=== PATIENT | male | born 1940 | race African-American/Black ===

== ENCOUNTER 2018-01-10 21:53 | Emergency (ER) | payer MEDICARE, MEDICAID ==
[~2018-01-10] VITALS: Ht 175.3 cm; Wt 104.5 kg
[~2018-01-10 21:53] MED LIST: AMLO1TAB39 PO; ATEN-42 PO; CLON1PAT11 TD; DOCU-150 PO; DORZ10DR8 EACHEYE; HYDR12.529 PO; LEVO25TA7 PO; LOSA25TA12 PO; NEOAPJ IM; TIMO10DR30 EACHEYE
[2018-01-10 23:44] LABS: HEMATOCRIT 37.8 % (42.0-52.0); HEMOGLOBIN 11.7 g/dL (14.0-18.0); MEAN CORPUSCULAR HEMOGLOBIN 29.3 pg (28.0-32.0); MEAN CORPUSCULAR VOLUME 94.5 fL (80.0-94.0); PLATELET 195 x1000/uL (130-400); RED CELL DISTRIBUTION WIDTH 14.4 % (11.6-14.6)
[2018-01-10 23:51] LABS: CHLORIDE 103 mEq/L (98-107)
[2018-01-11 02:45] VITALS: BP 153/87
[2018-01-15] MEDS ORDERED: DORZ10DR9 EACHEYE (14:48)
[2018-01-15] MEDS ORDERED: BRIM5DRO6 EACHEYE (14:48)
[2018-01-15] MEDS ORDERED: LATA2.5D2 EACHEYE (14:48)
== END 2018-01-11 03:18 | disposition home or self-care (01) ==
LOC: ER 22:05
DX: M79.89 Other specified soft tissue disorders (principal); I12.9 Hypertensive chronic kidney disease with stage 1 through stage 4 chronic kidney disease, or unspecified chronic kidney disease; N18.9 Chronic kidney disease, unspecified; J45.909 Unspecified asthma, uncomplicated; E03.9 Hypothyroidism, unspecified; H40.9 Unspecified glaucoma; H54.40 Blindness, one eye, unspecified eye
CPT/HCPCS: 36415; 80053; 85027; 87040; 93970; 99285

== ENCOUNTER 2019-10-25 09:56 | Inpatient (IN) | payer MEDICAID, MEDICARE, OTHER ==
[~2019-10-25] VITALS: Ht 182.9 cm; Wt 101.2 kg
[~2019-10-25 09:56] MED LIST changes: +BRIM5DRO6 EACHEYE; +DORZ10DR9 EACHEYE; +LATA2.5D2 EACHEYE; -LOSA25TA12 PO; +LOSA25TA26 PO
[2019-10-25 11:03] LABS: HEMATOCRIT. 39.6 % (42.0-52.0); HEMOGLOBIN. 11.9 g/dL (14.0-18.0); MEAN PLATELET VOLUME 6.8 fl (7.4-10.4); PLATELET 198 x1000/uL (130-400); RED BLOOD CELL COUNT 3.96 mill/uL (4.7-6.1); RED CELL DISTRIBUTION WIDTH 14.7 % (11.6-14.6)
[2019-10-25 11:12] LABS: CHLORIDE 104 mEq/L (98-107)
[2019-10-25 11:15] LABS: D-DIMER 2.23 mg/L FEU (<0.50); PROTHROMBIN TIME 11.2 sec (9.6-11.0)
[2019-10-25 11:18] LABS: BG CARBOXYHEMOGLOBIN 0.4 % (0.5-1.5); BG DEOXYHEMOGLOBIN 0.7 % (0.0-5.0); BG FRACTION INSPIRED OXYGEN 100; BG METHEMOGLOBIN 0.5 % (0.0-1.5); BG OXYGEN SATURATION 99.3 % (92.0-98.5); BG OXYHEMOGLOBIN 98.4 % (94.0-97.0); BG PCO2 > 183.4 mmHg (35.0-45.0); BG PH 6.993 (7.350-7.450); BG PO2 291.4 mmHg (75.0-100.0); BG SAMPLE SITE RIGHT RADIAL; BG TOTAL HEMOGLOBIN 12.8 g/dL (12.0-18.0); BG VENT MODE MASK - NRB
[2019-10-25 11:22] LABS: CREATINE KINASE 32 IU/L (39-308)
[2019-10-25] MEDS ORDERED: AZITHROMYCIN 500 MG in DEXT 5% WATER 250 ML IV SCH (11:30)
[2019-10-25] MEDS ORDERED: CEFTRIAXONE 1 G PREMIX 50 ML IV SCH (11:30)
[2019-10-25] MEDS ORDERED: ETOMIDATE 2MG/ML 10ML VIAL IV ONE ×2 (11:30)
[2019-10-25] MEDS ORDERED: PROPOFOL 10MG/ML 100ML 100 ML IV ONE ×2 (11:30→14:44)
[2019-10-25] MEDS ORDERED: ACETAMINOPHEN 325MG TABLET PO PRN (11:30)
[2019-10-25] MEDS ORDERED: SUCCINYLCHOLINE CHLORIDE 200MG/10ML IV ONE ×2 (11:30)
[2019-10-25] MEDS ORDERED: CEFTRIAXONE 1 G PREMIX 50 ML IV ONE (12:00)
[2019-10-25] MEDS ORDERED: AZITHROMYCIN 500 MG in DEXT 5% WATER 250 ML IV ONE (12:00)
[2019-10-25] MEDS ORDERED: ENOXAPARIN 100MG/ML SYR SUBCUT ONE (12:00)
[2019-10-25 12:05] LABS: PLATELET ESTIMATE NORMAL
[2019-10-25] MEDS: HYDRALAZINE 20MG/ML VIAL IV PRN ×2 (12:10→17:59)
[2019-10-25 12:20] LABS: CLARITY URINE CLEAR (CLEAR); COLOR URINE YELLOW (YELLOW); KETONES URINE NEGATIVE (NEGATIVE); LEUKOCYTE ESTERASE URINE NEGATIVE (NEGATIVE); NITRITE URINE NEGATIVE (NEGATIVE); OCCULT BLOOD URINE NEGATIVE (NEGATIVE); PROTEIN URINE TRACE (NEGATIVE); SPECIFIC GRAVITY URINE 1.013 (1.005-1.030); UROBILINOGEN URINE 0.2 E.U./dL (0.2-1.0)
[2019-10-25] MEDS: DEXT 5%/0.45% NACL 1000ML 1,000 ML IV SCH (12:25)
[2019-10-25] MEDS: PANTOPRAZOLE SODIUM 40 MG/VIAL IV SCH (12:25)
[2019-10-25] MEDS ORDERED: VANCOMYCIN 1 G PREMIX 200 ML IV ONE (12:30)
[2019-10-25] MEDS ORDERED: PIPERACILLIN/TAZ 3.375G PREMIX 50 ML IV ONE (12:30)
[2019-10-25] MEDS: ENOXAPARIN 40MG/0.4ML SYR SUBCUT SCH (13:32)
[2019-10-25] MEDS: PROPOFOL 10MG/ML 100ML 100 ML IV PRN ×2 (15:00→18:15)
[2019-10-25 16:28] LABS: BG BASE EXCESS 16.3 mmol/L (-2.0-2.0); BG CARBOXYHEMOGLOBIN 0.2 % (0.5-1.5); BG DEOXYHEMOGLOBIN 0.7 % (0.0-5.0); BG FRACTION INSPIRED OXYGEN 70; BG HCO3 ACT 40.4 mmol/L (22.0-26.0); BG METHEMOGLOBIN 0.3 % (0.0-1.5); BG OXYGEN SATURATION 99.3 % (92.0-98.5); BG OXYHEMOGLOBIN 98.8 % (94.0-97.0); BG PCO2 46.3 mmHg (35.0-45.0); BG PH 7.559 (7.350-7.450); BG PO2 186.8 mmHg (75.0-100.0); BG SAMPLE SITE RIGHT RADIAL; BG TIDAL VOLUME(mL) 500 mL; BG TOTAL HEMOGLOBIN 12.4 g/dL (12.0-18.0); BG VENT MODE VENT - A/C; BG VENT RATE 20 set
[2019-10-25] MEDS ORDERED: METHYLPREDNISOLONE SOD SUCC 125 MG/2 ML VIAL IV SCH (22:00)
[2019-10-26] MEDS: DEXT 5%/0.45% NACL 1000ML 1,000 ML IV SCH ×2 (00:45→14:55)
[2019-10-26] MEDS: HYDRALAZINE 20MG/ML VIAL IV PRN ×3 (00:48→13:26)
[2019-10-26] MEDS: PROPOFOL 10MG/ML 100ML 100 ML IV PRN ×4 (07:50→18:12)
[2019-10-26 08:05] LABS: BG CARBOXYHEMOGLOBIN 0.9 % (0.5-1.5); BG DEOXYHEMOGLOBIN 4.5 % (0.0-5.0); BG FRACTION INSPIRED OXYGEN 30; BG HCO3 ACT 35.6 mmol/L (22.0-26.0); BG METHEMOGLOBIN 0.3 % (0.0-1.5); BG OXYGEN SATURATION 95.4 % (92.0-98.5); BG OXYHEMOGLOBIN 94.3 % (94.0-97.0); BG PCO2 41.3 mmHg (35.0-45.0); BG PH 7.553 (7.350-7.450); BG PO2 64.7 mmHg (75.0-100.0); BG SAMPLE SITE RIGHT RADIAL; BG TIDAL VOLUME(mL) 500 mL; BG TOTAL HEMOGLOBIN 14.9 g/dL (12.0-18.0); BG VENT MODE VENT - A/C; BG VENT RATE 14 set
[2019-10-26] MEDS: METHYLPREDNISOLONE SOD SUCC 125 MG/2 ML VIAL IV SCH ×2 (08:51→15:10)
[2019-10-26] MEDS: PANTOPRAZOLE SODIUM 40 MG/VIAL IV SCH (09:21)
[2019-10-26 10:37] LABS: BASOPHILS % 0.2 % (0.0-2.0); EOSINOPHILS % 0.1 % (0.0-5.0); HEMATOCRIT. 42.1 % (42.0-52.0); HEMOGLOBIN. 13.3 g/dL (14.0-18.0); LYMPHOCYTES % 8.6 % (20.0-50.0); MEAN CORPUSCULAR HEMOGLOBIN 30.1 pg (28.0-32.0); MEAN CORPUSCULAR VOLUME 95.4 fL (80.0-94.0); MONOCYTES % 2.9 % (2.0-8.0); NEUTROPHILS % 88.2 % (40.0-76.0); PLATELET 202 x1000/uL (130-400); RED BLOOD CELL COUNT 4.42 mill/uL (4.7-6.1); RED CELL DISTRIBUTION WIDTH 14.4 % (11.6-14.6)
[2019-10-26 10:42] LABS: CHLORIDE 103 mEq/L (98-107)
[2019-10-26] MEDS: AMLODIPINE 10MG TABLET NG SCH (10:46)
[2019-10-26] MEDS: ENOXAPARIN 40MG/0.4ML SYR SUBCUT SCH (11:19)
[2019-10-26] MEDS ORDERED: CEFTRIAXONE 1 G PREMIX 50 ML IV SCH (11:30)
[2019-10-26] MEDS ORDERED: AZITHROMYCIN 250 MG in DEXT 5% WATER 250 ML IV SCH (12:00)
[2019-10-26] MEDS: LOSARTAN POTASSIUM 50 MG TABLET PO SCH ×2 (13:25→18:35)
[2019-10-26 13:34] LABS: *AMPHETAMINES SCREEN URINE NEGATIVE (NEGATIVE); *COCAINE SCREEN URINE NEGATIVE (NEGATIVE); METHADONE URINE SCREEN NEGATIVE (NEGATIVE); OPIATES URINE SCREEN NEGATIVE (NEGATIVE)
[2019-10-26 13:35] LABS: *BENZODIAZEPINES SCREEN URINE NEGATIVE (NEGATIVE)
[2019-10-26 13:37] LABS: *BARBITURATES SCREEN URINE NEGATIVE (NEGATIVE)
[2019-10-26 13:41] LABS: PHENCYCLIDINE URINE SCREEN NEGATIVE (NEGATIVE)
[2019-10-26 13:42] LABS: CANNABINOID URINE SCREEN NEGATIVE (NEGATIVE)
[2019-10-26 17:04] LABS: COVID-19 PCR RNA NOT DETECTED
[2019-10-26 17:05] LABS: COVID-19 PCR RNA NOT DETECTED
[2019-10-26] MEDS ORDERED: PROPOFOL 10MG/ML 100ML 100 ML IV PRN (20:15)
[2019-10-27] VITALS (42 sets, daily range): BP systolic 95–172; BP diastolic 51–93
[2019-10-27] MEDS: PROPOFOL 10MG/ML 100ML 100 ML IV PRN ×8 (00:37→21:35)
[2019-10-27] MEDS ORDERED: AMLO10TA80 PO (03:49)
[2019-10-27] MEDS ORDERED: GABA-529 PO (03:49)
[2019-10-27] MEDS ORDERED: HYDR-4135 PO (03:49)
[2019-10-27] MEDS ORDERED: FURO-151 PO (03:49)
[2019-10-27] MEDS ORDERED: DOCU-150 PO (03:49)
[2019-10-27] MEDS ORDERED: VIT500LI PO (03:49)
[2019-10-27] MEDS ORDERED: FERR325T6 PO (03:49)
[2019-10-27] MEDS: DEXT 5%/0.45% NACL 1000ML 1,000 ML IV SCH ×2 (04:47→16:39)
[2019-10-27] MEDS: METHYLPREDNISOLONE SOD SUCC 40 MG/ML VIAL IV SCH ×3 (06:25→23:01)
[2019-10-27] MEDS ORDERED: IPRATROPIUM/ALBUTEROL 0.5-3(2.5)MG/3ML NEB HHN PRN (07:00)
[2019-10-27] MEDS: IPRATROPIUM/ALBUTEROL 0.5-3(2.5)MG/3ML NEB HHN SCH ×4 (08:31→20:49)
[2019-10-27 09:27] LABS: BG BASE EXCESS 7.6 mmol/L (-2.0-2.0); BG CARBOXYHEMOGLOBIN 0.3 % (0.5-1.5); BG DEOXYHEMOGLOBIN 3.9 % (0.0-5.0); BG FRACTION INSPIRED OXYGEN 40; BG HCO3 ACT 30.8 mmol/L (22.0-26.0); BG METHEMOGLOBIN 0.2 % (0.0-1.5); BG OXYGEN SATURATION 96.1 % (92.0-98.5); BG OXYHEMOGLOBIN 95.6 % (94.0-97.0); BG PCO2 38.2 mmHg (35.0-45.0); BG PH 7.524 (7.350-7.450); BG PO2 73.1 mmHg (75.0-100.0); BG SAMPLE SITE LEFT RADIAL; BG TIDAL VOLUME(mL) 500 mL; BG TOTAL HEMOGLOBIN 13.3 g/dL (12.0-18.0); BG VENT MODE VENT - A/C; BG VENT RATE 12 set
[2019-10-27 09:32] LABS: HEMATOCRIT 40.3 % (42.0-52.0); HEMOGLOBIN 12.9 g/dL (14.0-18.0); MEAN CORPUSCULAR HEMOGLOBIN 30.3 pg (28.0-32.0); MEAN CORPUSCULAR VOLUME 94.4 fL (80.0-94.0); PLATELET 206 x1000/uL (130-400); RED BLOOD CELL COUNT 4.26 mill/uL (4.7-6.1); RED CELL DISTRIBUTION WIDTH 14.9 % (11.6-14.6)
[2019-10-27] MEDS: LOSARTAN POTASSIUM 50 MG TABLET PO SCH (09:33)
[2019-10-27] MEDS: AMLODIPINE 10MG TABLET NG SCH (09:33)
[2019-10-27] MEDS: ENOXAPARIN 40MG/0.4ML SYR SUBCUT SCH (09:34)
[2019-10-27] MEDS: PANTOPRAZOLE SODIUM 40 MG/VIAL IV SCH (09:34)
[2019-10-27 09:38] LABS: CHLORIDE 104 mEq/L (98-107)
[2019-10-27] MEDS: CEFTRIAXONE 1 G PREMIX 50 ML IV SCH (11:16)
[2019-10-27] MEDS ORDERED: FENTANYL CITRATE/PF 1,000 MCG in SODIUM CHLORIDE 0.9% 80 ML IV PRN (12:30)
[2019-10-27] MEDS: AZITHROMYCIN 250 MG in DEXT 5% WATER 250 ML IV SCH (12:33)
[2019-10-27] MEDS ORDERED: FUROSEMIDE 40MG/4ML VIAL IVP SCH (13:00)
[2019-10-27] MEDS ORDERED: FUROSEMIDE 20MG/2ML VIAL IVP SCH (13:00)
[2019-10-28] VITALS (32 sets, daily range): BP systolic 95–156; BP diastolic 52–96
[2019-10-28] MEDS: PROPOFOL 10MG/ML 100ML 100 ML IV PRN (00:58)
[2019-10-28] MEDS: IPRATROPIUM/ALBUTEROL 0.5-3(2.5)MG/3ML NEB HHN SCH ×6 (01:06→20:35)
[2019-10-28 04:28] LABS: BG BASE EXCESS 3.1 mmol/L (-2.0-2.0); BG CARBOXYHEMOGLOBIN 0.3 % (0.5-1.5); BG DEOXYHEMOGLOBIN 0.4 % (0.0-5.0); BG FRACTION INSPIRED OXYGEN 100; BG HCO3 ACT 28.7 mmol/L (22.0-26.0); BG METHEMOGLOBIN 0.4 % (0.0-1.5); BG OXYGEN SATURATION 99.6 % (92.0-98.5); BG OXYHEMOGLOBIN 98.9 % (94.0-97.0); BG PCO2 48.2 mmHg (35.0-45.0); BG PH 7.393 (7.350-7.450); BG PO2 372.1 mmHg (75.0-100.0); BG SAMPLE SITE LEFT RADIAL; BG TOTAL HEMOGLOBIN 12.9 g/dL (12.0-18.0); BG VENT MODE MASK - NRB
[2019-10-28] MEDS: METHYLPREDNISOLONE SOD SUCC 40 MG/ML VIAL IV SCH ×2 (06:36→15:54)
[2019-10-28] MEDS: DEXT 5%/0.45% NACL 1000ML 1,000 ML IV SCH ×2 (06:36→19:25)
[2019-10-28 07:19] LABS: CHLORIDE 103 mEq/L (98-107)
[2019-10-28 07:33] LABS: HEMATOCRIT. 38.1 % (42.0-52.0); HEMOGLOBIN. 12.4 g/dL (14.0-18.0); MEAN CORPUSCULAR HEMOGLOBIN 30.4 pg (28.0-32.0); MEAN CORPUSCULAR VOLUME 93.8 fL (80.0-94.0); MEAN PLATELET VOLUME 7.5 fl (7.4-10.4); PLATELET 237 x1000/uL (130-400); RED BLOOD CELL COUNT 4.06 mill/uL (4.7-6.1)
[2019-10-28] MEDS: ENOXAPARIN 40MG/0.4ML SYR SUBCUT SCH (09:00)
[2019-10-28] MEDS: FAMOTIDINE 20MG/2ML VIAL IV SCH ×2 (09:00→21:25)
[2019-10-28 09:05] LABS: BG BASE EXCESS 3.9 mmol/L (-2.0-2.0); BG DEOXYHEMOGLOBIN 3.4 % (0.0-5.0); BG FRACTION INSPIRED OXYGEN 32; BG HCO3 ACT 30.9 mmol/L (22.0-26.0); BG METHEMOGLOBIN 0.4 % (0.0-1.5); BG OXYGEN SATURATION 96.6 % (92.0-98.5); BG OXYHEMOGLOBIN 96.2 % (94.0-97.0); BG PCO2 57.7 mmHg (35.0-45.0); BG PH 7.347 (7.350-7.450); BG PO2 93.3 mmHg (75.0-100.0); BG SAMPLE SITE RIGHT RADIAL; BG TOTAL HEMOGLOBIN 12.5 g/dL (12.0-18.0); BG VENT MODE NASAL CANNULA
[2019-10-28 09:19] LABS: PLATELET ESTIMATE NORMAL
[2019-10-28] MEDS: CEFTRIAXONE 1 G PREMIX 50 ML IV SCH (11:29)
[2019-10-28] MEDS: AMLODIPINE 10MG TABLET NG SCH (11:29)
[2019-10-28] MEDS: LOSARTAN POTASSIUM 50 MG TABLET PO SCH (11:29)
[2019-10-28] MEDS: AZITHROMYCIN 250 MG in DEXT 5% WATER 250 ML IV SCH (12:00)
[2019-10-28] MEDS: PREDNISONE 20MG TABLET PO SCH (17:00)
[2019-10-29] VITALS (12 sets, daily range): BP systolic 114–145; BP diastolic 58–82
[2019-10-29] MEDS: IPRATROPIUM/ALBUTEROL 0.5-3(2.5)MG/3ML NEB HHN SCH ×6 (00:15→21:10)
[2019-10-29 06:57] LABS: BASOPHILS % 0.2 % (0.0-2.0); HEMATOCRIT. 34.7 % (42.0-52.0); HEMOGLOBIN. 11.1 g/dL (14.0-18.0); LYMPHOCYTES % 9.3 % (20.0-50.0); MEAN CORPUSCULAR HEMOGLOBIN 30.1 pg (28.0-32.0); MEAN CORPUSCULAR VOLUME 94.2 fL (80.0-94.0); MONOCYTES % 10.1 % (2.0-8.0); NEUTROPHILS % 80.4 % (40.0-76.0); PLATELET 203 x1000/uL (130-400); RED BLOOD CELL COUNT 3.69 mill/uL (4.7-6.1)
[2019-10-29 07:37] LABS: CHLORIDE 102 mEq/L (98-107)
[2019-10-29] MEDS: FAMOTIDINE 20MG/2ML VIAL IV SCH ×2 (08:29→21:09)
[2019-10-29] MEDS: DEXT 5%/0.45% NACL 1000ML 1,000 ML IV SCH ×2 (08:30→21:09)
[2019-10-29] MEDS: ENOXAPARIN 40MG/0.4ML SYR SUBCUT SCH (08:30)
[2019-10-29] MEDS: AMLODIPINE 10MG TABLET NG SCH (08:30)
[2019-10-29] MEDS: LOSARTAN POTASSIUM 50 MG TABLET PO SCH (08:30)
[2019-10-29] MEDS: PREDNISONE 20MG TABLET PO SCH (08:30)
[2019-10-29] MEDS: AZITHROMYCIN 250 MG in DEXT 5% WATER 250 ML IV SCH (12:34)
[2019-10-29] MEDS: CEFTRIAXONE 1 G PREMIX 50 ML IV SCH (15:16)
[2019-10-29] MEDS: TIMOLOL MALEATE 0.5% OPHTH DROPS 5ML EACHEYE SCH ×2 (15:17→21:10)
[2019-10-29] MEDS: LATANOPROST 0.005% OPHTH DROPS 2.5ML EACHEYE SCH (21:10)
[2019-10-30] VITALS (11 sets, daily range): BP systolic 98–179; BP diastolic 53–98
[2019-10-30] MEDS: IPRATROPIUM/ALBUTEROL 0.5-3(2.5)MG/3ML NEB HHN SCH ×6 (00:46→20:00)
[2019-10-30] MEDS: ONDANSETRON HCL 4MG/2ML INJ IV PRN (02:02)
[2019-10-30] MEDS: ENOXAPARIN 40MG/0.4ML SYR SUBCUT SCH (07:55)
[2019-10-30] MEDS: FAMOTIDINE 20MG/2ML VIAL IV SCH ×2 (07:55→21:02)
[2019-10-30] MEDS: AMLODIPINE 10MG TABLET NG SCH (07:55)
[2019-10-30] MEDS: PREDNISONE 20MG TABLET PO SCH (07:56)
[2019-10-30] MEDS: LOSARTAN POTASSIUM 50 MG TABLET PO SCH (07:56)
[2019-10-30] MEDS: TIMOLOL MALEATE 0.5% OPHTH DROPS 5ML EACHEYE SCH ×2 (07:57→21:03)
[2019-10-30] MEDS: LORAZEPAM 2MG/ML CPJ IV PRN (11:04)
[2019-10-30] MEDS: SODIUM CHLORIDE 0.9% 1,000 ML IV SCH (14:07)
[2019-10-30] MEDS: LATANOPROST 0.005% OPHTH DROPS 2.5ML EACHEYE SCH (21:03)
[2019-10-31] VITALS (8 sets, daily range): BP systolic 97–149; BP diastolic 52–83
[2019-10-31] MEDS: SODIUM CHLORIDE 0.9% 1,000 ML IV SCH (00:54)
[2019-10-31] MEDS: ONDANSETRON HCL 4MG/2ML INJ IV PRN ×2 (01:12→20:05)
[2019-10-31] MEDS: IPRATROPIUM/ALBUTEROL 0.5-3(2.5)MG/3ML NEB HHN SCH ×6 (01:33→20:10)
[2019-10-31] MEDS: LORAZEPAM 2MG/ML CPJ IV PRN ×2 (03:24→21:20)
[2019-10-31 06:26] LABS: HEMATOCRIT. 36.7 % (42.0-52.0); HEMOGLOBIN. 11.5 g/dL (14.0-18.0); MEAN CORPUSCULAR HEMOGLOBIN 30.1 pg (28.0-32.0); MEAN CORPUSCULAR VOLUME 95.6 fL (80.0-94.0); MEAN PLATELET VOLUME 7.2 fl (7.4-10.4); PLATELET 186 x1000/uL (130-400); RED BLOOD CELL COUNT 3.84 mill/uL (4.7-6.1); RED CELL DISTRIBUTION WIDTH 15.1 % (11.6-14.6)
[2019-10-31 06:30] LABS: CHLORIDE 107 mEq/L (98-107)
[2019-10-31] MEDS: ENOXAPARIN 40MG/0.4ML SYR SUBCUT SCH (08:46)
[2019-10-31] MEDS: LOSARTAN POTASSIUM 50 MG TABLET PO SCH (08:47)
[2019-10-31] MEDS: PREDNISONE 20MG TABLET PO SCH (08:47)
[2019-10-31] MEDS: AMLODIPINE 10MG TABLET NG SCH (08:49)
[2019-10-31] MEDS: FAMOTIDINE 20MG/2ML VIAL IV SCH ×2 (08:49→20:05)
[2019-10-31] MEDS: TIMOLOL MALEATE 0.5% OPHTH DROPS 5ML EACHEYE SCH ×3 (08:50→20:27)
[2019-10-31 11:33] LABS: ATYPICAL LYMPHOCYTES 1
[2019-10-31 11:34] LABS: PLATELET ESTIMATE NORMAL
[2019-10-31] MEDS: LATANOPROST 0.005% OPHTH DROPS 2.5ML EACHEYE SCH ×2 (20:06→20:27)
[2019-11-01] MEDS: IPRATROPIUM/ALBUTEROL 0.5-3(2.5)MG/3ML NEB HHN SCH ×6 (01:18→16:52)
[2019-11-01] MEDS: LORAZEPAM 2MG/ML CPJ IV PRN (04:19)
[2019-11-01 08:00] VITALS: BP 149/83
[2019-11-01] MEDS: ENOXAPARIN 40MG/0.4ML SYR SUBCUT SCH (08:36)
[2019-11-01] MEDS: TIMOLOL MALEATE 0.5% OPHTH DROPS 5ML EACHEYE SCH ×2 (08:36→20:38)
[2019-11-01] MEDS: PREDNISONE 20MG TABLET PO SCH (08:37)
[2019-11-01] MEDS: AMLODIPINE 10MG TABLET NG SCH (08:37)
[2019-11-01] MEDS: LOSARTAN POTASSIUM 50 MG TABLET PO SCH (08:37)
[2019-11-01] MEDS: FAMOTIDINE 20MG TABLET PO SCH ×2 (09:59→20:39)
[2019-11-01 12:00] VITALS: BP 148/84
[2019-11-01 16:00] VITALS: BP 134/78
[2019-11-01 16:20] LABS: BG BASE EXCESS -0.4 mmol/L (-2.0-2.0); BG CARBOXYHEMOGLOBIN 0.3 % (0.5-1.5); BG DEOXYHEMOGLOBIN 4.6 % (0.0-5.0); BG HCO3 ACT 27.9 mmol/L (22.0-26.0); BG METHEMOGLOBIN 0.4 % (0.0-1.5); BG OXYGEN SATURATION 95.4 % (92.0-98.5); BG OXYHEMOGLOBIN 94.7 % (94.0-97.0); BG PCO2 64.2 mmHg (35.0-45.0); BG PH 7.256 (7.350-7.450); BG SAMPLE SITE RIGHT BRACHIAL; BG TOTAL HEMOGLOBIN 12.3 g/dL (12.0-18.0); BG VENT MODE NASAL CANNULA
[2019-11-01] MEDS: SODIUM CHLORIDE 0.9% 1,000 ML IV SCH ×2 (18:01→20:56)
[2019-11-01 20:00] VITALS: BP 163/79
[2019-11-01] MEDS: LATANOPROST 0.005% OPHTH DROPS 2.5ML EACHEYE SCH (20:38)
[2019-11-01 22:00] VITALS: BP 177/90
[2019-11-02] VITALS (7 sets, daily range): BP systolic 141–178; BP diastolic 70–96
[2019-11-02] MEDS: IPRATROPIUM/ALBUTEROL 0.5-3(2.5)MG/3ML NEB HHN SCH ×5 (04:10→20:00)
[2019-11-02] MEDS: AMLODIPINE 10MG TABLET NG SCH (09:22)
[2019-11-02] MEDS: FAMOTIDINE 20MG TABLET PO SCH ×3 (09:22→20:13)
[2019-11-02] MEDS: ENOXAPARIN 40MG/0.4ML SYR SUBCUT SCH (09:24)
[2019-11-02] MEDS: TIMOLOL MALEATE 0.5% OPHTH DROPS 5ML EACHEYE SCH ×3 (09:24→20:17)
[2019-11-02] MEDS: PREDNISONE 20MG TABLET PO SCH (09:45)
[2019-11-02] MEDS: LOSARTAN POTASSIUM 50 MG TABLET PO SCH (09:45)
[2019-11-02] MEDS: FUROSEMIDE 20MG/2ML VIAL IVP SCH (16:20)
[2019-11-02] MEDS: HYDRALAZINE 20MG/ML VIAL IV PRN (16:20)
[2019-11-02] MEDS: LATANOPROST 0.005% OPHTH DROPS 2.5ML EACHEYE SCH ×2 (20:09→20:17)
[2019-11-03] VITALS (8 sets, daily range): BP systolic 127–166; BP diastolic 69–117
[2019-11-03] MEDS: HYDRALAZINE 20MG/ML VIAL IV PRN ×2 (00:08→10:56)
[2019-11-03] MEDS: LORAZEPAM 2MG/ML CPJ IV PRN ×2 (01:25→10:56)
[2019-11-03] MEDS: IPRATROPIUM/ALBUTEROL 0.5-3(2.5)MG/3ML NEB HHN SCH ×5 (05:10→16:00)
[2019-11-03] MEDS: SODIUM CHLORIDE 0.9% 1,000 ML IV SCH ×3 (09:05→20:53)
[2019-11-03] MEDS: TIMOLOL MALEATE 0.5% OPHTH DROPS 5ML EACHEYE SCH ×3 (09:28→20:55)
[2019-11-03] MEDS: ENOXAPARIN 40MG/0.4ML SYR SUBCUT SCH (09:28)
[2019-11-03] MEDS: FAMOTIDINE 20MG TABLET PO SCH ×2 (09:30→20:54)
[2019-11-03] MEDS: LOSARTAN POTASSIUM 50 MG TABLET PO SCH (09:30)
[2019-11-03] MEDS: FUROSEMIDE 20MG/2ML VIAL IVP SCH (09:31)
[2019-11-03] MEDS: PREDNISONE 10MG TABLET PO SCH (09:31)
[2019-11-03] MEDS: AMLODIPINE 10MG TABLET NG SCH (09:31)
[2019-11-03] MEDS: LATANOPROST 0.005% OPHTH DROPS 2.5ML EACHEYE SCH (20:55)
[2019-11-04] VITALS (8 sets, daily range): BP systolic 112–174; BP diastolic 60–94
[2019-11-04] MEDS: AMLODIPINE 10MG TABLET NG SCH ×2 (03:04→08:33)
[2019-11-04] MEDS: PREDNISONE 10MG TABLET PO SCH (08:32)
[2019-11-04] MEDS: TIMOLOL MALEATE 0.5% OPHTH DROPS 5ML EACHEYE SCH ×2 (08:32→21:52)
[2019-11-04] MEDS: ENOXAPARIN 40MG/0.4ML SYR SUBCUT SCH (08:33)
[2019-11-04] MEDS: FAMOTIDINE 20MG TABLET PO SCH ×2 (08:33→21:53)
[2019-11-04] MEDS: LOSARTAN POTASSIUM 50 MG TABLET PO SCH (08:33)
[2019-11-04] MEDS: FUROSEMIDE 20MG/2ML VIAL IVP SCH (08:34)
[2019-11-04] MEDS: IPRATROPIUM/ALBUTEROL 0.5-3(2.5)MG/3ML NEB HHN SCH ×4 (09:40→21:17)
[2019-11-04] MEDS: SODIUM CHLORIDE 0.9% 1,000 ML IV SCH ×2 (11:33→21:55)
[2019-11-04 16:11] LABS: HEMATOCRIT. 34.9 % (42.0-52.0); HEMOGLOBIN. 11.4 g/dL (14.0-18.0); MEAN CORPUSCULAR HEMOGLOBIN 30.9 pg (28.0-32.0); MEAN CORPUSCULAR VOLUME 94.8 fL (80.0-94.0); MEAN PLATELET VOLUME 7.1 fl (7.4-10.4); PLATELET 174 x1000/uL (130-400); RED BLOOD CELL COUNT 3.69 mill/uL (4.7-6.1)
[2019-11-04 16:15] LABS: CHLORIDE 106 mEq/L (98-107)
[2019-11-04 16:53] LABS: PLATELET ESTIMATE NORMAL
[2019-11-04] MEDS: LATANOPROST 0.005% OPHTH DROPS 2.5ML EACHEYE SCH (21:53)
[2019-11-05] VITALS (9 sets, daily range): BP systolic 128–160; BP diastolic 54–84
[2019-11-05] MEDS: IPRATROPIUM/ALBUTEROL 0.5-3(2.5)MG/3ML NEB HHN SCH ×3 (00:13→09:01)
[2019-11-05] MEDS: PREDNISONE 10MG TABLET PO SCH (07:57)
[2019-11-05] MEDS: ENOXAPARIN 40MG/0.4ML SYR SUBCUT SCH (07:58)
[2019-11-05] MEDS: FAMOTIDINE 20MG TABLET PO SCH (08:01)
[2019-11-05] MEDS: AMLODIPINE 10MG TABLET NG SCH (08:02)
[2019-11-05] MEDS: FUROSEMIDE 20MG/2ML VIAL IVP SCH (08:02)
[2019-11-05] MEDS: LOSARTAN POTASSIUM 50 MG TABLET PO SCH (08:07)
[2019-11-05] MEDS: TIMOLOL MALEATE 0.5% OPHTH DROPS 5ML EACHEYE SCH (08:07)
[2019-11-05] MEDS ORDERED: RISPERIDONE 1MG TABLET PO SCH (09:00)
== END 2019-11-05 17:35 | DRG 208 ==
LOC: ER 10:33 → 5EST 12:18 → UNDOADMIN 12:18 → EDBEDREQSVC 12:21 → EDBEDREQTM 12:21 → EDBEDREQ 12:21 → ENRESERV 10-26 23:25 → 5EST 10-28 20:08
PROVIDERS: ADMIT Internal Medicine; ATTEND Hospitalist
PROC: 5A1945Z Respiratory Ventilation, 24-96 Consecutive Hours (ICD-10-PCS; principal; 2019-10-25)
PROC: 0BH18EZ Insertion of Endotracheal Airway into Trachea, Via Natural or Artificial Opening Endoscopic (ICD-10-PCS; 2019-10-25)
PROC: 02HV33Z Insertion of Infusion Device into Superior Vena Cava, Percutaneous Approach (ICD-10-PCS; 2019-11-04)
DX: J96.02 Acute respiratory failure with hypercapnia (principal); G93.41 Metabolic encephalopathy; J44.1 Chronic obstructive pulmonary disease with (acute) exacerbation; E46 Unspecified protein-calorie malnutrition; I87.8 Other specified disorders of veins; C61 Malignant neoplasm of prostate; D64.9 Anemia, unspecified; E78.00 Pure hypercholesterolemia, unspecified; E78.5 Hyperlipidemia, unspecified; H40.9 Unspecified glaucoma; H54.3 Unqualified visual loss, both eyes; I11.0 Hypertensive heart disease with heart failure; I48.91 Unspecified atrial fibrillation; I50.9 Heart failure, unspecified; I87.2 Venous insufficiency (chronic) (peripheral); Z20.828 Contact with and (suspected) exposure to other viral communicable diseases; L85.3 Xerosis cutis; Z78.9 Other specified health status; Z85.46 Personal history of malignant neoplasm of prostate; Z87.891 Personal history of nicotine dependence; Z90.79 Acquired absence of other genital organ(s); Z68.30 Body mass index [BMI] 30.0-30.9, adult; Z88.8 Allergy status to other drugs, medicaments and biological substances; Z79.899 Other long term (current) drug therapy
CPT/HCPCS: 31500; 36415; 36556; 36600; 71045; 76937; 80048; 80053; 80305; 81003; 82375; 82550; 82728; 82805; 83605; 83615; 83735; 83880; 84145; 84478; 84484; 85025; 85027; 85379; 85384; 87804; 92610; 93005; 93306; 94002; 97110; 97162; 97166; 97530; 97535; 99291; C1725; C9113; J0330; J0360; J0456; J0696; J1650; J1940; J2060; J2405; J2543; J2704; J2920; J2930; J3370; J3490; J7030; J7060; J7512

== ENCOUNTER 2020-09-18 18:49 | Emergency (ER) | payer MEDICARE, MEDICAID ==
[~2020-09-18] VITALS: Ht 172.7 cm; Wt 85.0 kg
[2020-09-18] MEDS ORDERED: LIDOCAINE HCL 1% 20ML VIAL (Pyxis) INJ INFIL ONE (19:15)
[2020-09-19 08:31] VITALS: BP 206/89
== END 2020-09-19 10:53 | disposition home or self-care (01) ==
LOC: ER 18:49
DX: S81.811A Laceration without foreign body, right lower leg, initial encounter (principal); J44.9 Chronic obstructive pulmonary disease, unspecified; I11.0 Hypertensive heart disease with heart failure; I50.9 Heart failure, unspecified; Z86.718 Personal history of other venous thrombosis and embolism; Z79.01 Long term (current) use of anticoagulants; Z88.8 Allergy status to other drugs, medicaments and biological substances; W45.8XXA Other foreign body or object entering through skin, initial encounter; W22.8XXA Striking against or struck by other objects, initial encounter; Y93.89 Activity, other specified; Y92.013 Bedroom of single-family (private) house as the place of occurrence of the external cause
CPT/HCPCS: 12002; 99285; J3490